=== PATIENT | female | born 1940 | race Caucasian/White ===

== ENCOUNTER 2019-07-05 12:21 | Emergency (ER) | payer MEDICARE ==
[2019-07-05 12:34] VITALS: BP 158/108
--- NOTE | 2019-07-05 13:02 | UC ---
Dizzy HPI HPI Summary: 78 yo female has felt dizzy since a cardiac ablation for a fib that occurred a week ago no cp has had sligh PERDUE x 2 mos flew in yesterday - History Of Current Complaint Chief Complaint: UCDizziness Stated Complaint: LIGHT HEADED Time Seen by Provider: 07/05/19 12:34 Hx Obtained From: Patient Onset/Duration: Gradual Onset, Lasting Days Timing: Constant Severity Initially: Mild Pain Intensity: 2 Pain Scale Used: 0-10 Numeric Character: Lightheaded Aggravating Factor(s): Nothing Alleviating Factor(s): Nothing Associated Signs And Symptoms: Positive: Negative - Allergies/Home Medications Allergies/Adverse Reactions: Allergies Allergy/AdvReac Type Severity Reaction Status Date / Time Sulfa (Sulfonamide Allergy unk Verified 07/05/19 12:34 Antibiotics) Home Medications: Home Medications Apixaban* [Eliquis*] 2.5 mg PO BID 07/05/19 [History Confirmed 07/05/19] Losartan TAB* [Cozaar TAB*] 1 tab PO DAILY 07/05/19 [History Confirmed 07/05/19] PMH/Surg Hx/FS Hx/Imm Hx Previously Healthy: Yes Cardiovascular History: Hypertension, Atrial Fibrillation Cancer History: Other - r Other Cancer History: renal - Surgical History Surgical History: Yes Surgery Procedure, Year, and Place: tubal - Social History Alcohol Use: Occasionally Substance Use Type: None Smoking Status (MU): Never Smoked Tobacco Review of Systems All Other Systems Reviewed And Are Negative: Yes Constitutional: Positive: Negative Skin: Positive: Negative Eyes: Positive: Negative ENT: Positive: Negative Respiratory: Positive: Negative Cardiovascular: Positive: Negative Gastrointestinal: Positive: Negative Genitourinary: Positive: Negative Motor: Positive: Negative Neurovascular: Positive: Negative Musculoskeletal: Positive: Negative Neurological: Positive: Negative Psychological: Positive: Negative Physical Exam Triage Information Reviewed: Yes Appearance: Well-Appearing, No Pain Distress, Well-Nourished Vital Signs: Initial Vital Signs Temp 98.6 F 07/05/19 12:28 Pulse 95 07/05/19 12:28 Resp 18 07/05/19 12:28 BP 158/108 07/05/19 12:28 Pulse Ox 98 07/05/19 12:28 Vital Signs Reviewed: Yes Eyes: Positive: Conjunctiva Clear ENT: Positive: Hearing grossly normal. Negative: Nasal congestion, Nasal drainage, Muffled voice, Hoarse voice Neck: Positive: Supple, Nontender, No Lymphadenopathy Respiratory: Positive: Lungs clear, Normal breath sounds, No respiratory distress, No accessory muscle use Cardiovascular: Negative: RRR, No Murmur Abdomen Description: Positive: Nontender, No Organomegaly. Negative: CVA Tenderness (R), CVA Tenderness (L) Bowel Sounds: Positive: Present Musculoskeletal: Positive: ROM Intact, No Edema Neurological Exam: Normal Psychological Exam: Normal Skin Exam: Normal Diagnostics - EKG Cardiac Rate: NL Cardiac Rhythm: AFib: Old Ectopy: None ST Segment: Normal Dizzy Course/Dx - Course Course Of Treatment: d/w Dr Garcia to [facility] ER patient and refuse ambulance transfer - Differential Dx/Diagnosis Provider Diagnosis: Atrial fibrillation and flutter Discharge ED - Sign-Out/Discharge Documenting (check all that apply): Patient Departure All imaging exams completed and their final reports reviewed: No Studies - Discharge Plan Condition: Stable Disposition: HOME-RECOMMEND TO ED Patient Education Materials: A-fib (Atrial Fibrillation) (ED) Referrals: No Primary Care Phys,NOPCP [Primary Care Provider] - Additional Instructions: Please go directly to the ER They are expecting you - Billing Disposition and Condition Condition: STABLE Disposition: Home-Recommend to ED
== END 2019-07-05 13:07 | disposition home health service (06) ==
LOC: UCEAST 12:21
DX: I48.92 Unspecified atrial flutter (principal); I48.91 Unspecified atrial fibrillation; I10 Essential (primary) hypertension; Z88.2 Allergy status to sulfonamides; Z79.899 Other long term (current) drug therapy
CPT/HCPCS: 93005; 99202; G0463

== ENCOUNTER 2019-07-05 13:25 | Emergency (ER) | payer MEDICARE ==
[2019-07-05 14:20] LABS: ABS Eosinophils 0.1 10^3/ul (0-0.6); ABS Lymphocytes 1.4 10^3/ul (1.0-4.8); ABS Monocytes 0.7 10^3/ul (0-0.8); ABS Neutrophils 4.6 10^3/ul (1.5-7.7); Eosinophil % 1.2 %; Hematocrit 49 % (35-47); Hemoglobin 16.5 g/dL (12.0-16.0); Lymphocyte % 20.8 %; Mean Corpuscular HGB Conc 34 g/dL (31-36); Mean Corpuscular Hemoglobin 33 pg (27-31); Mean Corpuscular Volume 97 fL (80-97); Mean Platelet Volume 8.3 fL (7.4-10.4); Nucleated Red Blood Cells % 0.1; Platelet Count 232 10^3/uL (150-450); Red Blood Count 5.05 10^6 /uL (3.70-4.87); Red Cell Distribution Width 13 % (10-15); White Blood Count 6.9 10^3/uL (3.5-10.8)
[2019-07-05 14:26] LABS: INR 1.4 (0.82-1.09)
--- NOTE | 2019-07-05 15:31 | ED ---
Dizziness - HPI Summary HPI Summary: This pt is a 78 y/o female presenting to [facility] referred from [facility] for lightheadedness today. Pt reports she has hx of atrial fibrillation and had an ablation done [address] Gerardo in [place]. Immediately after ablation pt was back to normal sinus rhythm. Pt states she lives in [place] and just flew in yesterday to visit. She notes that today she felt lightheaded and diaphoretic. Pt describes lightheadedness as feeling of passing out. Denies room spinning sensation. Denies fever, chest pain, SOB, palpitations. Pt called her doctor today and was told if her lightheadedness continued to come to the ED. She went to Urgent Care today and then transferred to the ED for further work up. Pt is on Eliquis. - History Of Current Complaint Chief Complaint: EDDysrhythmPalp Stated Complaint: A FIB FROM CC Time Seen by Provider: 07/05/19 15:18 Hx Obtained From: Patient Onset/Duration: Still Present Severity Currently: Moderate Character: Lightheaded, Dizzy Aggravating Factor(s): Nothing Alleviating Factor(s): Nothing Associated Signs And Symptoms: Positive: Diaphoresis. Negative: Chest Pain, SOB , Palpitations, Fever - Allergies/Home Medications Allergies/Adverse Reactions: Allergies Allergy/AdvReac Type Severity Reaction Status Date / Time Sulfa (Sulfonamide Allergy unk Verified 07/05/19 12:34 Antibiotics) Home Medications: Home Medications Acetaminophen TAB* [Tylenol TAB*] 325 mg PO Q4H PRN 07/05/19 [History Confirmed 07/05/19] Calcium Carb/Mag Ox/Zinc Sulf [Gnojjkj-Vypnotabv-Zihk Tablet] 1 each PO DAILY [History Confirmed 07/05/19] LORazepam TAB(*) [Ativan 0.5 MG TAB (*)] 0.5 mg PO BEDTIME PRN 07/05/19 [ History Confirmed 07/05/19] Red Yeast Rice Extract 600 mg PO DAILY 07/05/19 [History Confirmed 07/05/19] PMH/Surg Hx/FS Hx/Imm Hx Endocrine/Hematology History: Denies: Hx Diabetes Cardiovascular History: Reports: Hx Atrial Fibrillation, Hx Hypertension - on meds - Cancer History Cancer Type, Location and Year: Renal - Surgical History Surgical History: Yes Surgery Procedure, Year, and Place: tubal Infectious Disease History: No Infectious Disease History: Denies: Traveled Outside the [place] in Last 30 Days - Family History Known Family History: Negative: Diabetes, Blood Disorder - Social History Alcohol Use: Occasionally Substance Use Type: Reports: None Smoking Status (MU): Never Smoked Tobacco Review of Systems Positive: Skin Diaphoresis. Negative: Fever Negative: Palpitations, Chest Pain Negative: Shortness Of Breath Neurological: Other - POSITIVE: lightheadedness All Other Systems Reviewed And Are Negative: Yes Physical Exam - Summary Physical Exam Summary: VITAL SIGNS: Reviewed. GENERAL: Patient is a well-developed and nourished female who is lying comfortable in the stretcher. Patient is not in any acute respiratory distress. HEAD AND FACE: No signs of trauma. No ecchymosis, hematomas or skull depressions. No sinus tenderness. EYES: PERRLA, EOMI x 2, No injected conjunctiva, no nystagmus. EARS: Hearing grossly intact. Ear canals and tympanic membranes are within normal limits. MOUTH: Oropharynx within normal limits. NECK: Supple, trachea is midline, no adenopathy, no JVD, no carotid bruit, no c- spine tenderness, neck with full ROM. CHEST: Symmetric, no tenderness at palpation LUNGS: Clear to auscultation bilaterally. No wheezing or crackles. CVS: Irregularly irregular rate and rhythm, S1 and S2 present, no murmurs or gallops appreciated. ABDOMEN: Soft, non-tender. No signs of distention. No rebound no guarding, and no masses palpated. Bowel sounds are normal. EXTREMITIES: FROM in all major joints, no edema, no cyanosis or clubbing. NEURO: Alert and oriented x 3. No acute neurological deficits. Speech is normal and follows commands. SKIN: Dry and warm Triage Information Reviewed: Yes Vital Signs On Initial Exam: Initial Vitals Temp Pulse Resp BP Pulse Ox 98.6 F 86 16 155/98 99 07/05/19 13:30 07/05/19 13:30 07/05/19 13:30 07/05/19 13:30 07/05/19 13:30 Vital Signs Reviewed: Yes Procedures - Sedation Patient Received Moderate/Deep Sedation with Procedure: No Diagnostics - Vital Signs Vital Signs Temp Pulse Resp BP Pulse Ox 07/05/19 13:30 98.6 F 86 16 155/98 99 - Laboratory Lab Results: Lab Results 07/05/19 07/05/19 Range/Units 14:02 14:02 WBC 6.9 (3.5-10.8) 10^3/uL RBC 5.05 H (3.70-4.87) 10^6 /uL Hgb 16.5 H (12.0-16.0) g/dL Hct 49 H (35-47) % MCV 97 (80-97) fL MCH 33 H (27-31) pg MCHC 34 (31-36) g/dL RDW 13 (10-15) % Plt Count 232 (150-450) 10^3/uL MPV 8.3 (7.4-10.4) fL Neut % (Auto) 67.6 % Lymph % (Auto) 20.8 % [place] % (Auto) 9.7 % Eos % (Auto) 1.2 % Baso % (Auto) 0.7 % Absolute Neuts (auto) 4.6 (1.5-7.7) 10^3/ul Absolute Lymphs (auto) 1.4 (1.0-4.8) 10^3/ul Absolute Monos (auto) 0.7 (0-0.8) 10^3/ul Absolute Eos (auto) 0.1 (0-0.6) 10^3/ul Absolute Basos (auto) 0.0 (0-0.2) 10^3/ul Absolute Nucleated RBC 0.0 10^3/ul Nucleated RBC % 0.1 INR (Anticoag Therapy) 1.40 H (0.82-1.09) Result Diagrams: 07/05/19 14:02 07/05/19 14:02 Lab Statement: Any lab studies that have been ordered have been reviewed, and results considered in the medical decision making process. - Radiology Chest XR Radiology Interpretation Completed By: Radiologist Summary of Radiographic Findings: IMPRESSION: No evidence for active cardiopulmonary disease. Dr. Gay has reviewed this report. - EKG 13:29 Cardiac Rate: NL - at 96 bpm EKG Rhythm: Atrial Flutter Summary of EKG Findings: EKG at 13:29 shows atrial flutter at 96 bpm. Re-Evaluation - Re-Evaluation First Eval Re-Evaluation Time: 17:24 Comment: Reviewed lab results and Dr. Roberts's recommendations with pt. Heart rate increased. Second Eval Re-Evaluation Time: 18:04 Change: Improved Comment: Heart rate is stable. Pt will be discharged home. Dizzy Course/Dx - Course Assessment/Plan: This patient is a 78-year-old female who presents to the emergency department with a chief complaint of having dizziness. The patient reports that she has a history of atrial flutter and fibrillation for which the patient is taking Eliquis. She had an ablation a week ago in [place] and now she is back in atrial fibrillation and flutter with a controlled rate. Blood tests without any significant abnormality except for a hemoglobin 16.5, hematocrit 49, creatinine 1.36, calcium 10.4, BNP 130. Heart rate is fluctuating between 80-140. Therefore the patient was given Cardizem 10 g IV. At this point I discussed my physical exam and findings with Dr. Roberts, from cardiology services, who recommends for the patient to be discharged home with a prescription for metoprolol 25 mg once a day. I discussed all the findings and test results with the patient. Patient was instructed to return to the emergency room immediately if any of the symptoms return worsens. Plan of care was discussed with the patient, and she understands and agrees. All questions were answered at patient satisfaction. There were no further complaints or concerns. Lung exam before discharge: CTA B/L. Good air exchange. No wheezing or crackles heard. CVS: S1 and S2 present. No murmurs appreciated. Patient is alert and oriented x 3. Patient is hemodynamically stable. Patient will be discharged home with follow up from PCP in the next 2-3 days. - Diagnoses Differential Diagnosis/HQI/PQRI: Dysrhythmia, Medication Reaction, Metabolic Abnormality Provider Diagnoses: Atrial fibrillation with controlled ventricular rate - Provider Notifications Discussed Care Of Patient With: Mundo Roberts Time Discussed With Above Provider: 17:16 Instructed by Provider To: Other - Discussed the case with Dr. Roberts, cardioligist, who recommends 25 mg Metoprolol and discharge home. Discharge ED - Sign-Out/Discharge Documenting (check all that apply): Patient Departure - Discharge home - Discharge Plan Condition: Stable Disposition: HOME Prescriptions: Metoprolol Tartrate TAB* [Lopressor TAB*] 25 mg PO DAILY #15 tab Patient Education Materials: A-fib (Atrial Fibrillation) (ED) Referrals: [facility] [Outside] Additional Instructions: FOLLOW UP WITH [facility] IN 2 DAYS. RETURN TO THE EMERGENCY DEPARTMENT FOR ANY WORSENING OR NEW SYMPTOMS. - Billing Disposition and Condition Condition: STABLE Disposition: Home - Attestation Statements Document Initiated by Alyssa: Yes Documenting Scribe: Lupe Stuart Provider For Whom Alyssa is Documenting (Include Credential): Ivan Gay MD Scribe Attestation: Lupe Deleon, scribed for Ivan Gay MD on 07/05/19 at 2123. Scribe Documentation Reviewed: Yes Provider Attestation: The documentation as recorded by the Lupe martini accurately reflects the service I personally performed and the decisions made by me, Ivan Gay MD Status of Scribe Document: Viewed
[2019-07-05 16:44] LABS: TSH (Thyroid Stimulating Horm) 1.19 mcIU/mL (0.34-5.60)
[2019-07-05 16:56] LABS: Albumin 4.5 g/dL (3.2-5.2); Albumin/Globulin Ratio 1.4 (1-3); BUN/Creatinine Ratio 13.2 (8-20); Calcium 10.4 mg/dL (8.6-10.3); EGFR African American 45.5 (>60); EGFR Non-African American 37.6 (>60); Globulin 3.3 g/dL (2-4); Potassium 4.3 mmol/L (3.5-5.0); Total Bilirubin 0.6 mg/dL (0.2-1.0); Total Protein 7.8 g/dL (6.4-8.9); Troponin I 0.01 ng/mL (<0.03)
[2019-07-05] MEDS: Metoprolol Tartrate TAB* 25 MG PO ONE (17:34)
[2019-07-05] MEDS: Diltiazem IV push/loading dose 5 MG/ML 5 ML vial (25 mg) IV SLOW PU ONE (17:36)
[2019-07-05 18:31] VITALS: BP 133/99
== END 2019-07-05 18:30 | disposition home or self-care (01) ==
LOC: ED 13:25
DX: I48.91 Unspecified atrial fibrillation (principal); I10 Essential (primary) hypertension; Z79.01 Long term (current) use of anticoagulants; Z79.899 Other long term (current) drug therapy; Z88.2 Allergy status to sulfonamides; Z85.528 Personal history of other malignant neoplasm of kidney; Z98.51 Tubal ligation status
CPT/HCPCS: 36415; 71045; 80053; 82550; 82553; 83880; 84443; 84484; 85025; 85610; 93005; 96374; 99283

== ENCOUNTER 2019-07-11 14:47 | Emergency (ER) | payer MEDICARE ==
--- NOTE | 2019-07-11 15:06 | ED ---
HPI Chest Pain - HPI Summary HPI Summary: Patient is a 78 y/o F presenting to the ED for a chief complaint of midsternal chest pain that began on 07/11/19. Patient was at rest when the chest pain began and states she feels lightheadedness and vision changes with the chest pain. Patient denies nausea, vomiting, or pain and swelling in the bilateral LE. She admits diaphoresis that she describes as hot flashes and occur when in atrial fibrillation and not with the chest pain. She took Tylenol on 07/11/19. She is concerned she is having a myocardial infarction. She was previously seen by her driver license agent in [place] 2 weeks ago and was in atrial fibrillation at the office. Patient reports a cardiac stress test several years ago. PMHx is significant for HTN, heart murmur, and atrial fibrillation. FMHx is significant for cardiac disease. Patient denies occasional alcohol use, but denies tobacco or drug use. Patient is vacationing in [place] and took a flight to visit [place]. She takes Eliquis. She was seen at [facility] on 07/05/19. Medications reviewed. Allergies noted. - History of Current Complaint Chief Complaint: EDChestPainROMI Time Seen by Provider: 07/11/19 14:55 Hx Obtained From: Patient Onset/Duration: Started Minutes Ago, Atraumatic, Still Present Timing: Constant Initial Severity: Mild Current Severity: Mild Pain Intensity: 2 Pain Scale Used: 0-10 Numeric Chest Pain Location: Mid Sternal Chest Pain Radiates: No Aggravating Factor(s): Nothing Alleviating Factor(s): Nothing Associated Signs and Symptoms: Positive: Chest Pain, Vision Changes, Lightheadedness, Diaphoresis - With atrial fibrillation, Other: - Negative myalgia in the bilateral LE. Negative: Nausea, Vomiting, Edema - Bilateral LE - Allergy/Home Medications Allergies/Adverse Reactions: Allergies Allergy/AdvReac Type Severity Reaction Status Date / Time Sulfa (Sulfonamide Allergy unk Verified 07/05/19 12:34 Antibiotics) PMH/Surg Hx/FS Hx/Imm Hx Previously Healthy: Yes Endocrine/Hematology History: Denies: Hx Diabetes Cardiovascular History: Reports: Hx Atrial Fibrillation, Hx Hypertension - on meds Denies: Hx Hypercholesterolemia Sensory History: Denies: Hx Legally Blind, Hx Deafness Opthamlomology History: Denies: Hx Legally Blind EENT History: Denies: Hx Deafness - Cancer History Cancer Type, Location and Year: Renal - Surgical History Surgical History: Yes Surgery Procedure, Year, and Place: tubal Infectious Disease History: No Infectious Disease History: Denies: Traveled Outside the US in Last 30 Days - Family History Known Family History: Negative: Diabetes, Blood Disorder - Social History Occupation: Retired Lives: With Family Alcohol Use: Occasionally Hx Substance Use: No Substance Use Type: Reports: None Hx Tobacco Use: No Smoking Status (MU): Never Smoked Tobacco Review of Systems Positive: Skin Diaphoresis - With atrial fibrillation Positive: Other - Positive vision changes with chest pain Positive: Chest Pain - Midsternal Negative: Vomiting, Nausea Negative: Myalgia - Bilateral LE, Edema - Bilateral LE Neurological: Other - Positive lightheadedness All Other Systems Reviewed And Are Negative: Yes Physical Exam - Summary Physical Exam Summary: Constitutional: Well-developed, Well-nourished, Alert. (-) Distressed Skin: Warm, Dry HENT: Normocephalic; Atraumatic Eyes: Conjunctiva normal Neck: Musculoskeletal ROM normal neck. (-) JVD, (-) Stridor, (-) Tracheal deviation Cardio: Rhythm regular, rate normal, Heart sounds normal; Intact distal pulses; Radial pulses are 2+ and symmetric. (-) Murmur Pulmonary/Chest wall: Effort normal. (-) Respiratory distress, (-) Wheezes, (-) Rales Abd: Soft, (-) tenderness, (-) Distension, (-) Guarding, (-) Rebound Musculoskeletal: (-) Edema. Good pulses bilaterally in radius, No calf tenderness, No venous cords, No pain with dorsiflexion of foot. Lymph: (-) Cervical adenopathy Neuro: Alert, Oriented x3 Psych: Mood and affect Normal Triage Information Reviewed: Yes Vital Signs On Initial Exam: Initial Vitals Temp Pulse Resp BP Pulse Ox 97.0 F 82 16 99/76 98 07/11/19 14:51 07/11/19 14:51 07/11/19 14:51 07/11/19 14:51 07/11/19 14:51 Vital Signs Reviewed: Yes Procedures - Sedation Patient Received Moderate/Deep Sedation with Procedure: No Diagnostics - Vital Signs Vital Signs Temp Pulse Resp BP Pulse Ox 07/11/19 14:51 97.0 F 82 16 99/76 98 - Laboratory Result Diagrams: 07/11/19 15:09 07/11/19 15:09 Lab Statement: Any lab studies that have been ordered have been reviewed, and results considered in the medical decision making process. - EKG 14:51 Cardiac Rate: Other Rate - 91 BPM EKG Rhythm: Atrial Flutter ST Segment: Normal Ectopy: None Summary of EKG Findings: EKG at 14:51 shows 91 BPM with atrial flutter, 1 PVC, Q wave inversions in V1-V3, no evidence of acute ischemia. Reviewed and interpreted by Dr. Rucker. Re-Evaluation - Re-Evaluation First Eval Re-Evaluation Time: 18:43 Change: Improved Comment: At 18:43, patients chest pain is improved. Patient has a stress next scheduled in [place]. Will do a repeat second troponin and then reassess. Chest Pain Course/Dx - Course Course Of Treatment: Patient is here with chest pain and atrial flutter. Patient has known atrial flutter even though she had an ablation 2 weeks ago for this. Patient had mild chest pain today which brought her in. Patient had an EKG which showed atrial flutter with no ischemic changes. Patient had serial troponins which were negative. Patient had negative d-dimer. Patient has a heart score of 3. Patient is from out of town and going back home to [place] next week. Patient was encouraged to call her driver license agent while she was in the ED and successfully set up a stress test for next week. - Diagnoses Provider Diagnoses: Chest pain, Atrial flutter Discharge ED - Sign-Out/Discharge Documenting (check all that apply): Patient Departure - Discharge - Discharge Plan Condition: Stable Disposition: HOME Patient Education Materials: Chest Pain (ED) Referrals: [facility] [Outside] Additional Instructions: Take your new medicine every morning. Have your stress test scheduled for next . Return if you have trouble breathing, feel like your heart is racing, or have worsening chest pain. PLEASE RETURN TO EMERGENCY DEPARTMENT FOR ANY NEW OR WORSENING SYMPTOMS. Please follow up with your primary care physician. Please make all follow-ups in 1-3 days unless I advise you otherwise. - Billing Disposition and Condition Condition: STABLE Disposition: Home - Attestation Statements Document Initiated by Scribe: Yes Documenting Scribe: Malia Goodson Provider For Whom Scribe is Documenting (Include Credential): Demetri Rucker MD Scribe Attestation: I, Malia Goodson, scribed for Demetri Rucker MD on 07/11/19 at 1958. Scribe Documentation Reviewed: Yes Provider Attestation: The documentation as recorded by the vivianeibeMalia accurately reflects the service I personally performed and the decisions made by me, Demetri Rucker MD Status of Scribe Document: Viewed
[2019-07-11 15:27] LABS: ABS Eosinophils 0.1 10^3/ul (0-0.6); ABS Lymphocytes 1.6 10^3/ul (1.0-4.8); ABS Monocytes 0.7 10^3/ul (0-0.8); ABS Neutrophils 4.2 10^3/ul (1.5-7.7); Eosinophil % 2.1 %; Hematocrit 48 % (35-47); Hemoglobin 16.1 g/dL (12.0-16.0); Lymphocyte % 23.7 %; Mean Corpuscular HGB Conc 34 g/dL (31-36); Mean Corpuscular Hemoglobin 33 pg (27-31); Mean Corpuscular Volume 98 fL (80-97); Nucleated Red Blood Cells % 0.2; Platelet Count 271 10^3/uL (150-450); Red Cell Distribution Width 13 % (10-15); White Blood Count 6.6 10^3/uL (3.5-10.8)
[2019-07-11 15:39] LABS: Albumin 4.4 g/dL (3.2-5.2); Calcium 10.3 mg/dL (8.6-10.3); Magnesium 2.1 mg/dL (1.9-2.7); Potassium 3.8 mmol/L (3.5-5.0); Total Bilirubin 0.4 mg/dL (0.2-1.0)
[2019-07-11 15:45] LABS: Albumin/Globulin Ratio 1.3 (1-3); BUN/Creatinine Ratio 14.9 (8-20); EGFR African American 52.1 (>60); Globulin 3.3 g/dL (2-4); INR 1.15 (0.82-1.09); Total Protein 7.7 g/dL (6.4-8.9)
[2019-07-11 15:46] LABS: Troponin I 0.01 ng/mL (<0.03)
[2019-07-11 19:47] VITALS: BP 185/141
== END 2019-07-11 19:43 | disposition home or self-care (01) ==
LOC: ED 14:47
DX: R07.9 Chest pain, unspecified (principal); I48.92 Unspecified atrial flutter; I10 Essential (primary) hypertension; I48.91 Unspecified atrial fibrillation; Z79.01 Long term (current) use of anticoagulants; Z79.899 Other long term (current) drug therapy; Z88.2 Allergy status to sulfonamides
CPT/HCPCS: 36415; 80053; 83735; 84484; 85025; 85379; 85610; 93005; 99283